=== PATIENT | female | born 1995 | race Two or more races ===

== ENCOUNTER 2022-01-27 14:55 | Emergency (ER) | payer OTHER ==
[~2022-01-27] VITALS: Ht 162.6 cm; Wt 94.3 kg
[2022-01-27] MEDS ORDERED: XULANE PATCH1 EACH TD (15:06)
== END 2022-01-27 15:28 | disposition home or self-care (01) ==
LOC: ER 14:55
DX: S69.82XA Other specified injuries of left wrist, hand and finger(s), initial encounter (principal); X58.XXXA Exposure to other specified factors, initial encounter; Y93.9 Activity, unspecified; Y92.9 Unspecified place or not applicable; Y99.9 Unspecified external cause status